=== PATIENT | female | born 1980 | race Caucasian/White ===

== ENCOUNTER 2018-08-29 13:59 | Emergency (ER) | payer OTHER ==
[~2018-08-29] VITALS: Ht 170.2 cm; Wt 86.2 kg
[~2018-08-29 13:59] MED LIST: OMEPRAZOLE10 MG; ZANTAC25 MG/1 ML
== END 2018-08-29 22:49 | disposition home or self-care (01) ==
LOC: ER 13:59
DX: K29.70 Gastritis, unspecified, without bleeding (principal)